=== PATIENT | female | born 2000 | race Caucasian/White ===

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

== ENCOUNTER 2021-08-22 18:57 | Emergency (ER) | payer BC, OTHER ==
[2021-08-22 19:01] VITALS: BP 158/87; PULSE 67; RESP 18; TEMP 97.5
[2021-08-22] MEDS ORDERED: SODIUM CHLORIDE 0.9% 1,000 ML IV STA (19:15)
[2021-08-22] MEDS ORDERED: MORPHINE SULFATE 4 MG/ML SYRINGE IVP STA (19:26)
[2021-08-22] MEDS ORDERED: METOCLOPRAMIDE 5 MG/ML 2 ML VIAL IVP STA (19:28)
--- NOTE | 2021-08-22 19:34 | ED ---
General Adult HPI - General Chief complaint: Abdominal Pain Stated complaint: abd pain Time Seen by Provider: 08/22/21 19:15 Source: patient Mode of arrival: ambulatory Limitations: no limitations - History of Present Illness Initial comments: Dictation was produced using [employer] dictation software. please excuse any grammatical, word or spelling errors. Chief Complaint: 20-year-old female presents to the emergency room for severe lo wer abdominal and lower back pain History of Present Illness: 20-year-old female who auscultation is had worsening development of lower abdominal pain and lower back pain. States the pain is related sharp. Denies any vaginal discharge or vaginal bleeding. Patient states she is not because she has not been sexually active in 1 month. Denies any fevers. No vomiting but is having some nausea. She states pain is constant and it is a severe dull ache. She thought that perhaps her symptoms had some do with constipation so she took feeq-[id number]-itfcufh laxatives. She has not had a bowel movement 2 days. The ROS documented in this emergency department record has been reviewed and con firmed by me. Those systems with pertinent positive or negative responses have been documented in the HPI. All other systems are other negative and/or noncontributory. PHYSICAL EXAM: General Impression: Alert and oriented x3, acute distress secondary to pain HEENT: Normocephalic atraumatic, extra-ocular movements intact, pupils equal and reactive to light bilaterally, mucous membranes moist. Cardiovascular: Heart regular rate and rhythm Chest: Able to complete full sentences, no retractions, no tachypnea Abdomen: abdomen soft, suprapubic palpatory tenderness, non-distended, no organomegaly Musculoskeletal: Pulses present and equal in all extremities, no peripheral edema Motor: no focal deficits noted Neurological: CN II-XII grossly intact, no focal motor or sensory deficits noted Skin: Intact with no visualized rashes Psych: Normal affect and mood ED course: 20 year old female presents to the emergency department with severe of the pain. Vital signs upon arrival are within acceptable limits. Patient is in acute distress. She denies however she is of childbearing age. Gxyas-bw-mdap bedside ultrasound was performed showing no free fluid in the abdomen. There does appear to be some evidence perhaps of bowel obstruction in the pelvic region Laboratory evaluation obtained showing mild leukocytosis 12.7 likely secondary to stress. Coag panel is negative. Metabolic panel abdominal labs are negative. Serum beta Quant is less than 2.4. Computed tomography scan of abdomen and pelvis shows no acute processes. Patient reevaluated after 2 hours and 30 minute ER observation and haven't been given IV analgesics. At 9:30 patient still having pain. Transvaginal ultrasound ordered for evaluation of pelvic organs. Transvaginal ultrasound shows bilateral ovarian cysts no evidence of ovarian torsion. Patient again reevaluated at 10:40 PM. She is sleeping. She was woken up and reevaluated. Patient states her pain is slightly improved. Dispos ition options were discussed she is agreeable with discharge. Patient given a starter pack of Tylenol 3's. She requested referrals to other primary care doctors that are closer to where she lives. - Related Data Home Medications Medication Instructions Recorded Confirmed No Known Home Medications 08/22/21 08/22/21 Allergies Allergy/AdvReac Type Severity Reaction Status Date / Time No Known Allergies Allergy Verified 08/22/21 20:20 Review of Systems ROS Statement: Those systems with pertinent positive or pertinent negative responses have been documented in the HPI. ROS Other: All systems not noted in ROS Statement are negative. Past Medical History Past Medical History: No Reported History History of Any Multi-Drug Resistant Organisms: None Reported Past Surgical History: No Surgical Hx Reported Past Anesthesia/Blood Transfusion Reactions: No Reported Reaction Past Psychological History: ADD/ADHD Smoking Status: Never smoker Past Alcohol Use History: Rare Past Drug Use History: Marijuana - Past Family History Mother Family Medical History: No Reported History General Exam Limitations: no limitations Course Vital Signs 08/22/21 18:58 Temperature 97.5 F L Pulse Rate 67 Respiratory 18 Rate Blood Pressure 158/87 O2 Sat by Pulse 100 Oximetry Medical Decision Making - Lab Data Result diagrams: 08/22/21 19:26 08/22/21 19:26 Lab Results 08/22/21 08/22/21 08/22/21 Range/Units 19:26 19:26 19:29 WBC 12.7 H (4.0-11.0) k/uL RBC 5.21 (3.80-5.40) m/uL Hgb 14.9 (11.4-16.0) gm/dL Hct 44.1 (34.0-46.0) % MCV 84.8 (80.0-100.0) fL MCH 28.7 (25.0-35.0) pg MCHC 33.8 (31.0-37.0) g/dL RDW 14.5 (11.5-15.5) % Plt Count 341 (150-450) k/uL MPV 8.1 Neutrophils % 81 % Lymphocytes % 14 % Monocytes % 3 % Eosinophils % 1 % Basophils % 0 % Neutrophils # 10.3 H (1.3-7.7) k/uL Lymphocytes # 1.8 (1.0-4.8) k/uL Monocytes # 0.4 (0-1.0) k/uL Eosinophils # 0.1 (0-0.7) k/uL Basophils # 0.0 (0-0.2) k/uL PT 11.1 (9.0-12.0) sec INR 1.0 (<1.2) APTT 26.1 (22.0-30.0) sec Sodium 137 (137-145) mmol/L Potassium 3.7 (3.5-5.1) mmol/L Chloride 105 (98-107) mmol/L Carbon Dioxide 24 (22-30) mmol/L Anion Gap 8 mmol/L BUN 10 (7-17) mg/dL Creatinine 0.66 (0.52-1.04) mg/dL Est GFR (CKD-EPI)AfAm >90 (>60 ml/min/1.73 sqM) Est GFR (CKD-EPI)NonAf >90 (>60 ml/min/1.73 sqM) Glucose 102 H (74-99) mg/dL Calcium 9.7 (8.4-10.2) mg/dL Total Bilirubin 0.6 (0.2-1.3) mg/dL AST 17 (14-36) U/L ALT 13 (4-34) U/L Alkaline Phosphatase 71 (38-126) U/L Total Protein 7.8 (6.3-8.2) g/dL Albumin 4.6 (3.5-5.0) g/dL Lipase 33 (23-300) U/L HCG, Quant <2.4 mIU/mL Urine Color Urine Appearance (Clear) Urine pH (5.0-8.0) Ur Specific [place] (1.001-1.035) Urine Protein (Negative) Urine Glucose (UA) (Negative) Urine Ketones (Negative) Urine Blood (Negative) Urine Nitrite (Negative) Urine Bilirubin (Negative) Urine Urobilinogen (<2.0) mg/dL Ur Leukocyte Esterase (Negative) Blood Type Blood Type Recheck Bld Type Recheck Status Antibody Screen Spec Expiration Date 08/22/21 08/22/21 Range/Units 19:36 22:00 WBC (4.0-11.0) k/uL RBC (3.80-5.40) m/uL Hgb (11.4-16.0) gm/dL Hct (34.0-46.0) % MCV (80.0-100.0) fL MCH (25.0-35.0) pg MCHC (31.0-37.0) g/dL RDW (11.5-15.5) % Plt Count (150-450) k/uL MPV Neutrophils % % Lymphocytes % % Monocytes % % Eosinophils % % Basophils % % Neutrophils # (1.3-7.7) k/uL Lymphocytes # (1.0-4.8) k/uL Monocytes # (0-1.0) k/uL Eosinophils # (0-0.7) k/uL Basophils # (0-0.2) k/uL PT (9.0-12.0) sec INR (<1.2) APTT (22.0-30.0) sec Sodium (137-145) mmol/L Potassium (3.5-5.1) mmol/L Chloride (98-107) mmol/L Carbon Dioxide (22-30) mmol/L Anion Gap mmol/L BUN (7-17) mg/dL Creatinine (0.52-1.04) mg/dL Est GFR (CKD-EPI)AfAm (>60 ml/min/1.73 sqM) Est GFR (CKD-EPI)NonAf (>60 ml/min/1.73 sqM) Glucose (74-99) mg/dL Calcium (8.4-10.2) mg/dL Total Bilirubin (0.2-1.3) mg/dL AST (14-36) U/L ALT (4-34) U/L Alkaline Phosphatase (38-126) U/L Total Protein (6.3-8.2) g/dL Albumin (3.5-5.0) g/dL Lipase (23-300) U/L HCG, Quant mIU/mL Urine Color Light Yellow Urine Appearance Clear (Clear) Urine pH 7.0 (5.0-8.0) Ur Specific [place] >1.050 H (1.001-1.035) Urine Protein Negative (Negative) Urine Glucose (UA) Negative (Negative) Urine Ketones 2+ H (Negative) Urine Blood Negative (Negative) Urine Nitrite Negative (Negative) Urine Bilirubin Negative (Negative) Urine Urobilinogen <2.0 (<2.0) mg/dL Ur Leukocyte Esterase Negative (Negative) Blood Type O Negative Blood Type Recheck O Neg Bld Type Recheck Status No Antibody Screen NEGATIVE Spec Expiration Date 08/25/20212335 Disposition Clinical Impression: Pelvic pain Disposition: HOME SELF-CARE Condition: Good Instructions (If sedation given, give patient instructions): Pelvic Pain in Women (ED) Is patient prescribed a controlled substance at d/c from ED?: No Referrals: Paul Blake MD [Primary Care Provider] - 1-2 days Antonia Martinez MD [STAFF PHYSICIAN] - 1-2 days Verónica Nelson MD [REFERRING] - 1-2 days Lilli Horton MD [REFERRING] - 1-2 days
[2021-08-22 19:36] LABS: Basophils % (A) 0 %; Eosinophils # (A) 0.1 k/uL (0-0.7); Eosinophils % (A) 1 %; HCT 44.1 % (34.0-46.0); HGB 14.9 gm/dL (11.4-16.0); Lymphocytes # (A) 1.8 k/uL (1.0-4.8); Lymphocytes % (A) 14 %; MCH 28.7 pg (25.0-35.0); MCHC 33.8 g/dL (31.0-37.0); MCV 84.8 fL (80.0-100.0); Mean Platelet Volume 8.1; Monocytes # (A) 0.4 k/uL (0-1.0); Monocytes % (A) 3 %; Neutrophils # (A) 10.3 k/uL (1.3-7.7); Neutrophils % (A) 81 %; Platelet Count 341 k/uL (150-450); RBC 5.21 m/uL (3.80-5.40); RDW 14.5 % (11.5-15.5); WBC 12.7 k/uL (4.0-11.0)
[2021-08-22 19:45] LABS: ALT 13 U/L (4-34); AST 17 U/L (14-36); African American GFR (CKD) >90 (>60 ml/min/1.73 sqM); Albumin 4.6 g/dL (3.5-5.0); Alkaline Phosphatase 71 U/L (38-126); Anion Gap 8 mmol/L; Blood Urea Nitrogen 10 mg/dL (7-17); Calcium 9.7 mg/dL (8.4-10.2); Carbon Dioxide 24 mmol/L (22-30); Chloride 105 mmol/L (98-107); Glucose 102 mg/dL (74-99); Lipase 33 U/L (23-300); Non-African American GFR(CKD) >90 (>60 ml/min/1.73 sqM); Potassium 3.7 mmol/L (3.5-5.1); Sodium 137 mmol/L (137-145); Total Bilirubin 0.6 mg/dL (0.2-1.3); Total Protein 7.8 g/dL (6.3-8.2)
[2021-08-22 20:00] LABS: Partial Thromboplastin Time 26.1 sec (22.0-30.0); Prothrombin Time 11.1 sec (9.0-12.0)
[2021-08-22 20:01] LABS: HCG,Quantitative Serum <2.4 mIU/mL
--- NOTE | 2021-08-22 21:12 | CT ---
EXAMINATION TYPE: CT abdomen pelvis w con DATE OF EXAM: 08/22/2021 COMPARISON: None HISTORY: Abdominal pain CT DLP: 1059.4 mGycm Automated exposure control for dose reduction was used. CONTRAST: Performed with IV Contrast, patient injected with 100 mL of Isovue 300. Lung bases are clear. There is no pleural effusion. Heart size is normal. No pericardial effusion. Li roderick spleen and stomach pancreas gallbladder appear intact. Bile ducts are not dilated. There is no adrenal mass. Kidneys show satisfactory contrast opacification. There is no hydronephrosi s. Ureters are not dilated. Delayed images show normal renal excretion. There is no retroperitoneal a denopathy. Appendix is posterior and appears normal. Uterus is anteverted. No free fluid in the pelvi s. Bladder distends smoothly. There is no inguinal hernia. There is no evidence of pelvic mass. There is no mesenteric edema. No ascites or free air. No bowel o bstruction. Lumbar vertebrae have normal spacing and alignment. Posterior elements are intact. There is no compression fracture. Bony pelvis is intact. The hip joints are intact. IMPRESSION: Negative CT scan abdomen and pelvis.
[2021-08-22] MEDS ORDERED: MORPHINE SULFATE 4 MG/ML SYRINGE IV STA (21:31)
[2021-08-22 22:17] LABS: Appearance,Urine Clear (Clear); Bilirubin,Urine Negative (Negative); Blood,Urine Negative (Negative); Color,Urine Light Yellow; Glucose,Urine (UA) Negative (Negative); Leukocyte Esterase,Urine Negative (Negative); Nitrite,Urine Negative (Negative); Protein,Urine Negative (Negative); Urobilinogen,Urine <2.0 mg/dL (<2.0)
[2021-08-22 22:24] LABS: Ketones,Urine 2+ (Negative); Specific Gravity,Urine >1.050 (1.001-1.035)
--- NOTE | 2021-08-22 22:35 | US ---
EXAMINATION TYPE: US transvaginal DATE OF EXAM: 08/22/2021 COMPARISON: CT CLINICAL HISTORY: pelvic pain. EC patient with pelvic pain x 2-3 days; constipation and chills; TECHNIQUE: Transvaginal (TV). Transvaginal sonographic images were medically necessary to better as sess the following anatomy: ovaries. Date of LMP: approximately 08/04/2021 EXAM MEASUREMENTS: Uterus: 9.1 x5.9 x 3.8 cm Endometrial Stripe: 0.8 cm Right Ovary: 3.0 x 1.9 x 1.5 cm Left Ovary: 4.5 x 3.3 x 3.6 cm 1. Uterus: Anteverted; very small Nabothian Cyst in Cervix = 0.2 x 0.2 x 0.1cm. 2. Endometrium: fluid = 1.6 x 1.6 x 0.2cm is seen endometrial layers in upper endometrium , but thickness is wnl for approximately Day 19 LMP. 3. Right Ovary: multifollicular with largest = 0.6 x 0.7 x 0.4cm. 4. Left Ovary: multifollicular with largest cyst noted with peripheral ring of color flow = 2.4 x 1. 5 x 1.3cm. Spectral, color and Pulse waveform Doppler imaging shows good arterial and venous flow within the o varies; there is no evidence for ovarian torsion. 5. Bilateral Adnexa: wnl 6. Posterior cul-de-sac: wnl IMPRESSION: Bilateral ovarian cysts. No solid adnexal mass. There is tiny amount of endometrial fluid. No evidence of ovarian torsion. No free fluid.
[2021-08-22] MEDS ORDERED: ACET/COD 300 MG/30 MG STARTER PACK 6 TAB BTL PO STA (22:42)
== END 2021-08-22 22:50 | disposition home or self-care (01) ==
LOC: EC 18:57
DX: R10.2 Pelvic and perineal pain (principal)
CPT/HCPCS: 36415; 86900; 86901; 80053; 83690; 85025; 85610; 85730; 86850; 81003; 84702; 93975; 76830; 74177; 99284; 96374; 96375; 96376; 96361; J2270; J2765; Q9967